=== PATIENT | male | born 1950 | race Caucasian/White ===

== ENCOUNTER 2025-03-12 16:24 | Emergency (ER) | payer SELFPAY ==
[2025-03-12 16:31] VITALS: BP 138/86
--- NOTE | 2025-03-12 17:58 | ED.GENMED ---
History of Present Illness
General
Chief Complaint: Fall
Source: patient
Exam Limitations: none
Time Seen by Provider: 03/12/25 17:53
History of Present Illness
History of Present Illness:
See MDM
Past History
Past History
ED Past Medical History: None
ED Past Surgical History: Orthopedic
Social History
Tobacco: Non-smoker
Alcohol: None
Phy Exam
Physical Exam
Physical Exam:
See MDM
Course
Orders/Labs/Results
Orders:
Orders
03/12/25 17:57
CT Cervical Spine W/o Iv Contr Urgent
Comment:
Reason For Exam: fall, neck pain
CT Chest W/o Iv Contrast Urgent
Comment:
Reason For Exam: fall, left rib and back pain
CT Head W/o Iv Contrast Urgent
Comment:
Reason For Exam: fall, head injury
Oxycodone/Acetaminophen [Percocet 5/325] 1 tablet PO NOW STA
Vital Signs
Initial and Last Documented VS:
Initial Vital Signs
Temp Pulse Resp BP Pulse Ox
98.4 F 79 18 138/86 95
03/12/25 16:31 03/12/25 16:31 03/12/25 16:31 03/12/25 16:31 03/12/25 16:31
Last Documented Vital Signs
Temp Pulse Resp BP Pulse Ox
97.9 F 72 18 136/84 95
03/12/25 19:40 03/12/25 19:40 03/12/25 19:40 03/12/25 19:40 03/12/25 19:40
MDM/Problems Addressed
Differential Diagnosis Includes:
Note:
CHIEF COMPLAINT(S)
Fall with headache and rib pain.
HISTORY OF PRESENT ILLNESS
The patient is a 74-year-old male who presented following a fall from approximately eight steps at his house. The patient reports hitting his head during the fall. He does not recall experiencing any loss of consciousness. Presenting complaints
include a headache and pain in the rib area. Upon examination, the patient indicated the pain was located in the thoracic region near the rib cage. There were no evident contusions upon inspection, but the patient reported tenderness in the area.
Additionally, the patient mentioned a persistent cough that exacerbated with the changing seasons.
PAST MEDICAL AND SURGICAL HISTORY
The patient has had surgery on his back, but specific details were not disclosed.
PHYSICAL EXAM
General: Alert, no acute distress.
Skin: Warm, dry.
Head: Normocephalic, atraumatic
Neck: Appears supple, trachea midline.
Eyes, Ears, Nose, Mouth, and Throat: Moist mucous membranes
Cardiovascular: No signs of cyanosis
Respiratory: Respirations are non-labored. Lungs clear. Point tenderness to left lateral ribs.
Back: Tenderness to left lower thoracic region
Abdomen: Non-distended
Musculoskeletal: No deformities
Neurological: No focal neurological deficit observed.
Psychiatric: Cooperative, appropriate mood and affect.
PLAN
Obtain CT scans of the head and chest to assess for potential fractures and overall injury following the fall.
DIFFERENTIAL DIAGNOSIS
- Rib fracture or contusion
- Traumatic brain injury
- Thoracic spine injury
- Costochondritis
- Pneumothorax
- Headache due to trauma
- Pneumonia (secondary to shallow breathing)
- Muscle strain
- Hemothorax
- Pulmonary contusion
SUMMARY OF ENCOUNTER
The patient presented to the emergency department after a fall from stairs resulting in a headache and rib pain. Given the mechanism of injury and symptomatology, CT scans of the head and chest were ordered to rule out intracranial injury and rib
fractures. Pain management was addressed with prescribed analgesics to prevent complications such as pneumonia from shallow breathing due to pain.
DISPOSITION
Not explicitly mentioned.
EMERGENCY TREATMENTS ADMINISTERED
The patient was offered pain relief medication, Percocet, for management of rib pain.
INDEPENDENT REVIEW OF LABS AND INTERPRETATION OF TESTS
CT scans of the head and chest were ordered. Results pending or not discussed in detail.
MEDICATION RECONCILIATION
Percocet prescribed for pain management related to rib tenderness and advised for controlling pain to prevent complications like pneumonia.
MEDICAL DECISION MAKING
- Number and Complexity of Problems Addressed: Chronic conditions affecting care include potential rib fracture, headache following trauma, and past back surgery complications.
- Data:
- Category 1: Tests and documents: CT scans of head and chest ordered and reviewed.
- Category 2: My independent interpretation of radiological studies pending due to test results awaited.
- Risk: Percocet managed for pain, with consideration for monitoring due to potential risk of shallow breathing and pneumonia without adequate pain control.
03/12/25 - 19:50
CT findings were discussed with the patient, revealing no obvious rib fracture. However, extensive coronary artery disease was noted. It was advised that this finding be followed up with his manager banking for further evaluation and management.
SUMMARY OF ENCOUNTER
The patient, a 74-year-old male, presented to the emergency department following a fall from approximately eight steps at his house, resulting in a headache and rib pain. He reported hitting his head during the incident but did not lose
consciousness. Physical examination suggested rib tenderness and thoracic discomfort, with no visible bruising. CT scans of the head and chest were ordered to rule out intracranial injury and potential rib fractures. CT findings indicated no
evidence of rib fractures but revealed significant coronary artery disease. Pain management with analgesics was implemented to facilitate breathing and prevent complications like pneumonia. The patient was advised to follow up with a manager banking
for further evaluation of his coronary artery disease.
PLAN
- Manage pain with prescribed analgesics to facilitate adequate breathing.
- Discuss incidental coronary artery disease finding with the patient, recommending follow-up with a manager banking.
- Discharge with pain management and outpatient cardiology follow-up instructions.
INDEPENDENT REVIEW OF LABS AND INTERPRETATION OF TESTS
- My independent interpretation of the CT scan of the head shows no acute intracranial injuries.
- My independent interpretation of the CT scan of the chest reveals no acute rib fractures but notes significant coronary artery atherosclerosis.
PATIENT EDUCATION AND COUNSELING
The patient was educated about the importance of managing pain to promote proper breathing and mitigate the risk of pneumonia. The incidental finding of significant coronary artery disease was discussed, and the patient was encouraged to follow up
with a manager banking for further assessment and management.
FOLLOW-UP INSTRUCTIONS
The patient was advised to schedule an appointment with a manager banking for further evaluation and management of the coronary artery disease identified on the CT scan.
MEDICATION RECONCILIATION
- Percocet (oxycodone and acetaminophen) prescribed for pain management related to rib tenderness.
MEDICAL DECISION MAKING
- Number and Complexity of Problems Addressed: Chronic conditions affecting care include potential rib fracture, headache following trauma, and past back surgery complications. Differential diagnosis includes rib fracture or contusion, traumatic
brain injury, thoracic spine injury, costochondritis, pneumothorax, headache due to trauma, pneumonia, muscle strain, hemothorax, pulmonary contusion.
- Data:
- Category 1: Tests and documents: CT scans of head and chest ordered and reviewed.
- Risk: Prescription medication Percocet was prescribed for pain management, considering potential risks of shallow breathing and pneumonia without adequate pain control.
DIAGNOSIS
- Rib contusion (ICD-10: S20.219A)
- Coronary artery disease without angina pectoris (ICD-10: I25.10)
*Pulse Oximetry
SaO2: 95
Oxygen Mode of Delivery: Room air
Patient hypoxic: no
*Critical Care Note
Total Time (30-74mins, 75-104mins- exclusive of procedures): Not Applicable
ED Attending Note
-
Portions of this chart may have been created with voice recognition software.� Occasional wrong word or��sound alike� substitutions may have occurred due to the inherent limitations of voice recognition software.
Discharge Plan
Departure
Patient Disposition: Home (Routine Discharge)
Date of Disposition: 03/12/25
Time of Disposition: 19:51
Patient with high blood pressure during this ER visit?: No
Discharge Problem:
Bruised ribs
Instructions: Rib fracture or bruised rib - ED (DC)
Prescriptions:
New
oxycodone 5 mg tablet
5 mg PO Q8H PRN (Reason: Pain) Qty: 14 0RF
Referrals:
Gali Wooten MD [Family Provider, Family Practice]
Activity Restrictions/Additional Instructions:
Please return for any worsening symptoms.
You may return at any time if you have further concerns.
Please follow up with your doctor at the first available appointment, preferably this week. Please discuss your symptoms and the CT findings for significant calcium deposits in your heart vessels.
You were given a prescription for narcotics. If you require this pain medicine, please take a daily [id number] stool softener to avoid constipation.
Thank you for choosing [facility].
Interventions
Interventions:
*Risk Screen - Suicide Last Done: 03/12/25 16:31
*General Assessment Last Done: 03/12/25 16:31
*Neglect/Abuse Screening Last Done: 03/12/25 16:31
*ED- Fall Risk Assessment Last Done: 03/12/25 18:03
*ED COVID-19 Vaccine History Last Done: 03/12/25 17:40
*ED Influenza Vaccine History Last Done: 03/12/25 17:40
ED-Musculoskeletal Assessment Last Done: 03/12/25 17:39
ED- Neurological Assessment Last Done: 03/12/25 17:37
ED-Skin Assessment Last Done: 03/12/25 17:40
Discharge Date and Time
Print Language: NEPALI
[2025-03-12 18:00] VITALS: BP 137/84
[2025-03-12] MEDS: PERCOCET 5/325 1 TABLET PO (18:06)
[2025-03-12 18:09] VITALS: BMI 33.3
[2025-03-12 19:40] VITALS: BP 136/84
== END 2025-03-12 20:38 | disposition home or self-care (01) ==
LOC: EMR 16:24
PROVIDERS: EMERGENCY PHYSICIAN Student in an Organized Health Care Education/Training Program; FAMILY PHYSICIAN Family Medicine
DX: S20.219A Contusion of unspecified front wall of thorax, initial encounter (principal); G44.309 Post-traumatic headache, unspecified, not intractable; W10.9XXA Fall (on) (from) unspecified stairs and steps, initial encounter; Y92.009 Unspecified place in unspecified non-institutional (private) residence as the place of occurrence of the external cause; R05.3 Chronic cough; I25.10 Atherosclerotic heart disease of native coronary artery without angina pectoris; Z88.1 Allergy status to other antibiotic agents; Z88.0 Allergy status to penicillin; Z88.2 Allergy status to sulfonamides
CPT/HCPCS: 99284; 70450; 71250; 72125